=== PATIENT | female | born 1990 | race Caucasian/White ===

== ENCOUNTER 2022-08-07 13:53 | Emergency (ER) | payer BC ==
[~2022-08-07] VITALS: Ht 162.6 cm; Wt 66.3 kg
[~2022-08-07 13:53] MED LIST: BC POWDER; CYMBALTA; LAMICTAL; MOTRIN; TYLENOL; XANAX
[2022-08-07] MEDS ORDERED: VYVANSE50 MG (14:19)
[2022-08-07] MEDS ORDERED: CLONAZEPAM0.5 MG PO (14:19)
== END 2022-08-07 15:00 | disposition home or self-care (01) ==
LOC: FSED 13:59
DX: R10.32 Left lower quadrant pain (principal); M79.605 Pain in left leg; K21.9 Gastro-esophageal reflux disease without esophagitis; F41.9 Anxiety disorder, unspecified; Z87.442 Personal history of urinary calculi; F17.210 Nicotine dependence, cigarettes, uncomplicated
CPT/HCPCS: 80053; 81003; 81025; 85025; 99283